=== PATIENT | female | born 1975 | race Caucasian/White ===

== ENCOUNTER 2017-07-24 14:19 | Emergency (ER) | payer SELFPAY ==
[~2017-07-24] VITALS: Ht 177.8 cm; Wt 66.2 kg
[2017-07-24 14:45] VITALS: Ht 177.8 cm; Wt 66.2 kg
[2017-07-24 17:05] VITALS: BP 140/87
== END 2017-07-24 17:15 | disposition home or self-care (01) ==
LOC: EDBD 14:19 → ED 14:19
DX: J06.9 Acute upper respiratory infection, unspecified (principal); I10 Essential (primary) hypertension
CPT/HCPCS: Q0162